=== PATIENT | male | born 1980 | race Two or more races ===

== ENCOUNTER → 2024-08-13 | Outpatient (CLI) | payer MEDICARE, MEDICAID, SELFPAY ==
--- NOTE | 2024-08-13 15:24 | XR_ITS ---
Examination: Lumbar spine, 5 views Technique: Lumbar spine AP, lateral, coned lateral lower lumbar spine, bilateral obliques 5 views Exam date and time: August 13, 2024 1531 hrs. Indications: Low back pain radiating down the right leg numbness in the right leg 2 months Findings: Large amounts of stool throughout the colon Adequate alignment lumbar vertebral bodies No lumbar significant disc narrowing Minor calcified disc bulging at the L3-L4 level No spondylolisthesis Impression: No lumbar fracture or significant lumbar disc narrowing As clinically warranted, MRI lumbar spine without contrast follow-up would best assess for soft tissue disc protrusion producing radicular right leg symptoms
== END | disposition home or self-care (01) ==
PROVIDERS: PCP Nurse Practitioner Primary Care; Referring Provider Nurse Practitioner Primary Care; Visit Provider Nurse Practitioner Primary Care
DX: R20.0 Anesthesia of skin (principal)
CPT/HCPCS: 72110

== ENCOUNTER → 2024-11-05 | Outpatient (CLI) | payer MEDICARE, MEDICAID, SELFPAY | END | disposition home or self-care (01) | PROVIDERS: PCP Nurse Practitioner Primary Care; Referring Provider Psychiatry & Neurology Neurology; Visit Provider Psychiatry & Neurology Neurology | DX: G40.909 Epilepsy, unspecified, not intractable, without status epilepticus (principal) | CPT/HCPCS: 95816 ==